=== PATIENT | male | born 1975 | race Caucasian/White ===

== ENCOUNTER 2020-11-16 12:28 | Outpatient (CLI) | payer OTHER, SELFPAY ==
--- NOTE | ~2020-11-16 | MR_ITS ---
EXAMINATION: MR lumbar spine wo con EXAM DATE: 11/16/2020 13:31 INDICATION: Lumbago TECHNIQUE: Multi-sequential, multiplanar MR images of the lumbar spine were obtained without contrast . Sagittal T1, T2, T2 fat saturation images. Axial T2 weighted images. There is no prior study for comparison. FINDINGS: There is mild to moderate disc disease at L5-S1 with 2 mm retrolisthesis. There is mild dis c disease at C4-5. The conus medullaris terminates at the L1/2 level and has normal signal intensity and morphology. There are no suspicious marrow signal abnormalities. Paraspinal soft tissue is unrem arkable. Level by level evaluation: T12-L1: Disc does not extend beyond the endplate margin. Facet arthropathy: None. Neural foraminal stenosis: No stenosis. Central canal stenosis: No stenosis. L1-L2: Disc does not extend beyond the endplate margin. Facet arthropathy: None. Neural foraminal stenosis: No stenosis. Central canal stenosis: No stenosis. L2-L3: Disc does not extend beyond the endplate margin. Facet arthropathy: None. Neural foraminal stenosis: No stenosis. Central canal stenosis: No stenosis. L3-L4: Disc does not extend beyond the endplate margin. Facet arthropathy: None. Neural foraminal stenosis: No stenosis. Central canal stenosis: No stenosis. L4-L5: There is a mild diffuse disc bulge with central annular fissure. Facet arthropathy: Mild. Neural foraminal stenosis: Mild to moderate left, mild right. Central canal stenosis: Mild. L5-S1: There is a mild to moderate diffuse disc bulge. Facet arthropathy: Mild to moderate. Neural foraminal stenosis: Moderate left, mild to moderate right. Central canal stenosis: Mild to moderate. IMPRESSION: 1. Moderate left neural foraminal stenosis at L5-S1. 2. Otherwise mild to moderate lower lumbar spondylosis. Reviewed, dictated and finalized at location G. EAR SECURITY OFFICER
== END 2020-11-16 12:29 | disposition home or self-care (01) ==
PROVIDERS: PCP Internal Medicine
DX: M47.817 Spondylosis without myelopathy or radiculopathy, lumbosacral region (principal); M48.07 Spinal stenosis, lumbosacral region
CPT/HCPCS: 72148

== ENCOUNTER → 2021-12-20 00:39 | Outpatient (CLI) | payer OTHER, SELFPAY ==
[2021-12-20 11:31] LABS: SARS-CoV-2 RNA PCR Negative
== END ==
PROVIDERS: PCP Internal Medicine; Visit Provider Internal Medicine Gastroenterology
DX: Z01.812 Encounter for preprocedural laboratory examination (principal); Z20.822 Contact with and (suspected) exposure to COVID-19
CPT/HCPCS: C9803; U0003; U0005

== ENCOUNTER 2021-12-24 01:27 | Day surgery (SDC) | payer OTHER, SELFPAY ==
[2021-12-24 08:33] VITALS: BP 119/73; PULSE 117; RESP 20; TEMP 36.8; O2SAT 96
[2021-12-24] MEDS: LACTATED RINGERS 1,000 ML 150 ML IV CONT (08:40)
--- NOTE | 2021-12-24 09:14 | WPDANESEPPF ---
Anes - Initial Pre Proc Eval Procedure: Operation Date: 12/24/21 10:15 Proposed Procedures p Colonoscopy - Dar Montero MD Date/Time: 12/24/21 09:14 Surgeon: Dar Montero MD Pre Op Diagnosis: melena Patient Data Age: 46 Gender: M Height: 1.7 m Weight: 83.5 kg Last Vital Signs Temp 36.8 C 12/24/21 08:33 Pulse 117 H 12/24/21 08:33 Resp 20 12/24/21 08:33 BP 119/73 12/24/21 08:33 Pulse Ox 96 12/24/21 08:33 Allergies Allergy/AdvReac Type Severity Reaction Status Date / Time tramadol AdvReac Mild Rash Verified 12/24/21 08:32 Home Medications Medication Instructions Recorded Confirmed Type albuterol sulfate 1.25 mg INHALATION QID PRN ml 10/24/20 12/11/21 History cyclobenzaprine 10 mg tablet 10 mg PO TID tablet 10/24/20 12/11/21 History fluocinonide 0.05 % topical cream See Rx Instructions .ROUTE .COMPLEX 10/24/20 12/11/21 History lidocaine HCl 3 % topical cream 1 applic TOPICAL DAILY g 10/24/20 12/11/21 History pregabalin 300 mg capsule 300 mg PO BID cap 10/24/20 12/11/21 History sertraline 100 mg tablet 200 mg PO BID tablet 10/24/20 12/11/21 History quetiapine 200 mg tablet 200 mg PO BID 30 Days #60 tablet 01/13/21 12/11/21 Rx atorvastatin 20 mg tablet 20 mg PO DAILY #90 tablet 10/20/21 12/11/21 Rx meloxicam 7.5 mg tablet 7.5 mg PO BID #60 tablet 11/26/21 12/11/21 Rx pantoprazole 40 mg tablet,delayed 40 mg PO QAM #30 tablet 11/26/21 12/11/21 Rx release fluticasone propion-salmeterol 1 ea INHALATION BID 12/11/21 12/11/21 History [Wixela Inhub] albuterol sulfate 90 mcg/actuation 2 inh INHALATION Q6-8H PRN #8.5 g 12/22/21 Rx aerosol inhaler Patient hx anesthesia problems: none Family hx anesthesia problems: none Results Review: All pre-operative results and documents have been reviewed as part of the pre-operative evaluation. PMFSH Family History Family History Other Anxiety Arthritis COPD (chronic obstructive pulmonary disease) Chronic pain Depression Social History Social History Smoking packs per day: 2 Smoking cigarettes per day: 40.0 Years smoked: 30 Smoking pack-years: 60.00 Smoking status: Current every day smoker Tobacco type: cigarettes Second hand tobacco smoke exposure: Yes Alcohol intake: never Substance use: never Substance use type: marijuana Living arrangements: with family Spiritual care concerns: No Anes - Eval Final PreProcedure Day of Procedure 12/24/21 09:14 Patient weight: overweight Heart: regular rate and rhythm Lungs: clear to auscultation Airway: Mallampati scale class II Neurological: alert and oriented Last oral intake: >/= 8 hours ASA classification: III Emergent: no Anesthetic plan: proceed Anesthesia type and monitoring: general GIVS and standard monitoring Results Review: All pre-operative results and documents have been reviewed as part of the pre-operative evaluation. Informed Consent: The patient's anesthetic plan and its attendant risks and benefits were discussed with the patient/family/POA. Questions were solicited and answers provided to the satisfaction of the patient/family/POA.
--- NOTE | 2021-12-24 10:16 | PM.HPGS ---
History of Present Illness History of Present Illness Consent: Risks, benefits, and alternatives have been discussed and questions answered. Patient agrees to proceed with procedure. Chief complaint: melena Narrative: Abdulkadir Adrian is a 46 year old male with intermittent hematochezia, never had colonoscopy Review of Systems Constitutional: Constitutional: Denies headache(s) and Denies weakness Eyes: Eyes: Denies blurry vision ENT: Reports Normal hearing present, Denies headache(s) and Denies neck pain Cardiovascular: Cardiovascular: Denies chest pain and Denies dyspnea Respiratory: Respiratory: Denies dyspnea Gastrointestinal: Gastrointestinal: Reports no additional gastrointestinal complaints Genitourinary: Genitourinary: Denies dysuria Musculoskeletal: Musculoskeletal: Denies neck pain Integumentary/Breasts: Skin/Breast: Denies dry skin Neurologic: Reports Normal hearing present, Denies headache(s) and Denies weakness Psychiatric: Psychiatric: Denies anxiety Endocrine: Endocrine: Denies change in body appearance Hematologic/Lymphatic: Hematologic/Lymphatic: Denies easy bleeding Allergic/Immunologic: Allergic/Immunologic: Denies urticaria PMFSH Past Medical History Medical History (Updated 12/24/21 @ 10:17 by Dar Montero MD) Hematochezia Family History Family History Other Anxiety Arthritis COPD (chronic obstructive pulmonary disease) Chronic pain Depression Social History Social History Smoking packs per day: 2 Smoking cigarettes per day: 40.0 Years smoked: 30 Smoking pack-years: 60.00 Smoking status: Current every day smoker Tobacco type: cigarettes Second hand tobacco smoke exposure: Yes Alcohol intake: never Substance use: never Substance use type: marijuana Living arrangements: with family Spiritual care concerns: No Meds Home Medications and Allergies Home Medications Medication Instructions Recorded Confirmed Type albuterol sulfate 1.25 mg INHALATION QID PRN ml 10/24/20 12/11/21 History cyclobenzaprine 10 mg tablet 10 mg PO TID tablet 10/24/20 12/11/21 History fluocinonide 0.05 % topical cream See Rx Instructions .ROUTE .COMPLEX 10/24/20 12/11/21 History lidocaine HCl 3 % topical cream 1 applic TOPICAL DAILY g 10/24/20 12/11/21 History pregabalin 300 mg capsule 300 mg PO BID cap 10/24/20 12/11/21 History sertraline 100 mg tablet 200 mg PO BID tablet 10/24/20 12/11/21 History quetiapine 200 mg tablet 200 mg PO BID 30 Days #60 tablet 01/13/21 12/11/21 Rx atorvastatin 20 mg tablet 20 mg PO DAILY #90 tablet 10/20/21 12/11/21 Rx meloxicam 7.5 mg tablet 7.5 mg PO BID #60 tablet 11/26/21 12/11/21 Rx pantoprazole 40 mg tablet,delayed 40 mg PO QAM #30 tablet 11/26/21 12/11/21 Rx release fluticasone propion-salmeterol 1 ea INHALATION BID 12/11/21 12/11/21 History [Wixela Inhub] albuterol sulfate 90 mcg/actuation 2 inh INHALATION Q6-8H PRN #8.5 g 12/22/21 Rx aerosol inhaler Allergies Allergy/AdvReac Type Severity Reaction Status Date / Time tramadol AdvReac Mild Rash Verified 12/24/21 08:32 Vital Signs Vital Signs - 24 hr 12/24/21 08:33 Temperature 98.2 F Pulse Rate 117 H Respiratory Rate 20 Blood Pressure 119/73 Pulse Oximetry 96 Exam Const: General: comfortable and no acute distress HENMT: General nose exam: Normal nares present Eyes: General: appearance normal, both eyes and all related structures Neck: Neck: no JVD Resp: Auscultation: clear to auscultation bilaterally Cardio: Rate: regular rate Rhythm: regular rhythm GI: Inspection: non-distended GI Palp: Yes Soft to palpation Skin: General skin exam: normal color Neuro: General: gait normal Speech: normal speech Extrem: General: normal to inspection Psych: Mental Status: mental status grossly normal Assessment and Plan
[2021-12-24 10:48] VITALS: BP 119/70; PULSE 95; RESP 23; O2SAT 93
[2021-12-24 10:58] VITALS: BP 119/78; PULSE 90; RESP 26; O2SAT 93
[2021-12-24 11:08] VITALS: BP 125/85; PULSE 85; RESP 25; O2SAT 93
== END 2021-12-24 11:19 | disposition home or self-care (01) ==
PROVIDERS: PCP Internal Medicine; Visit Provider Internal Medicine Gastroenterology
PROC: 0DJD8ZZ Inspection of Lower Intestinal Tract, Via Natural or Artificial Opening Endoscopic (ICD-10-PCS; CPT 45378; principal; 2021-12-24 10:15)
DX: Z12.11 Encounter for screening for malignant neoplasm of colon (principal); K92.1 Melena; D12.2 Benign neoplasm of ascending colon; K63.5 Polyp of colon; K64.8 Other hemorrhoids; F17.210 Nicotine dependence, cigarettes, uncomplicated; F12.90 Cannabis use, unspecified, uncomplicated; Z79.51 Long term (current) use of inhaled steroids
CPT/HCPCS: 45385; 88305; J2704; J7120

== ENCOUNTER 2022-03-10 15:16 | Outpatient (CLI) | payer OTHER, SELFPAY ==
[2022-03-10 15:29] LABS: Basophils Absolute Auto 0.1 K/mm3 (0.0-0.1); Basophils Percent Auto 0.6 % (0.2-1.2); Eosinophils Absolute Auto 0.3 K/mm3 (0-0.3); Eosinophils Percent Auto 1.9 % (0-4.4); Hematocrit 47.5 % (42.0-52.0); Hemoglobin 16.1 g/dL (14.0-18.0); Immature Granulocyte Absolute 0.07 K/mm3 (0.00-0.031); Immature Granulocyte Percent A 0.4 % (0-0.5); Lymphocytes Absolute Auto 2.32 K/mm3 (0.9-3.2); Mean Corpuscular HGB Conc 33.9 g/dl (32-36); Mean Corpuscular Hemoglobin 31.9 pg (26-34); Mean Corpuscular Volume 94.1 fl (80-100); Mean Platelet Volume 10.7 fl (7.4-10.4); Monocytes Absolute Auto 1.2 K/mm3 (0.1-0.6); Monocytes Percent Auto 7.3 % (2.6-8.5); Neutrophils Absolute Auto 12.6 K/mm3 (1.3-6.7); Neutrophils Percent Auto 75.8 % (45.5-73.1); Platelet Count Result 270 k/mm3 (150-375); Red Blood Count 5.05 M/mm3 (4.6-6.20); Red Cell Distribution Width 14.4 % (11.5-14.5); White Blood Count 16.6 K/mm3 (4.5-10.0)
[2022-03-10 15:40] LABS: Anion Gap 7 mmol/L (8-16); Blood Urea Nitrogen 11 mg/dL (9-20); Calcium 8.6 mg/dL (8.4-10.2); Carbon Dioxide 27 mmol/L (22-30); Chloride 106 mmol/L (98-107); Estimated Glomerular Filt Rate > 60; Glucose 100 mg/dL (65-110); Potassium 3.9 mmol/L (3.4-5.0); Sodium 140 mmol/L (137-145)
== END 2022-03-10 15:17 | disposition home or self-care (01) ==
LOC: ANHLAB 15:17
PROVIDERS: PCP Internal Medicine; Visit Provider Internal Medicine Pulmonary Disease
DX: J44.9 Chronic obstructive pulmonary disease, unspecified (principal)
CPT/HCPCS: 36415; 80048; 85025

== ENCOUNTER 2022-03-25 08:19 | Outpatient (CLI) | payer OTHER, SELFPAY ==
--- NOTE | ~2022-03-25 | XR_ITS ---
EXAMINATION: XR chest 2V DATE: 03/25/2022 08:34 INDICATION: Shortness of breath, COPD TECHNIQUE: PA and lateral views of the chest are obtained. COMPARISON: None available FINDINGS: The lungs are free of acute opacities. There is no pleural effusion or pneumothorax. The ca rdiomediastinal silhouette is normal. There is mild thoracic spondylosis. There is a healed right six th rib fracture. IMPRESSION: 1. No acute cardiopulmonary abnormality. Reviewed, dictated and finalized at location A.
== END 2022-03-25 08:20 | disposition home or self-care (01) ==
LOC: ANHIMG 08:21
PROVIDERS: PCP Internal Medicine; Visit Provider Internal Medicine Pulmonary Disease
DX: M47.814 Spondylosis without myelopathy or radiculopathy, thoracic region (principal); J44.9 Chronic obstructive pulmonary disease, unspecified
CPT/HCPCS: 71046

== ENCOUNTER 2022-04-03 14:11 | Outpatient (CLI) | payer OTHER, SELFPAY ==
--- NOTE | 2022-04-03 15:40 | WPDSIXMINUTE ---
Six Minute Walk Procedure Procedure Performed Pulmonary Stress Test (6 min walk) Six Minute Walk Six Minute Walk: This is a 6 minute walk test. The test was performed and interpreted in accordance with the 2014 ERS/ATS task force guidelines. Findings: The patient's resting room air oxygen saturation measured by pulse oximetry was 93% and heart rate was 107 bpm. Patient ambulated for 433 meters and oxygen saturation remained 91 to 93%. Heart rate at the end of the study was 103 bpm. The patient did not qualify for supplemental oxygen at rest or with ambulation. There are no prior studies for comparison.
--- NOTE | 2022-04-03 15:42 | WPDPFTINT ---
PFT Procedure Performed PFT Procedure Performed Spirometry with Pre/Post Bronchodilator Plethysmography (Lung Vol) Diffusing Cap (DLCO) Flow Vol Loop PFT Interpretation This is a pulmonary function test with pre and post-bronchodilator spirometry, plethysmography and diffusing capacity. The test was performed and results interpreted in accordance with the 2019 and 2005 ATS/ERS Task Force guidelines respectively using the Global Lung Function Initiative-2012 reference equations. Patient demonstrated good effort and cooperation. Reproducibility criteria were met. The quality of the pre bronchodilator spirometry maneuver was Grade C and post bronchodilator spirometry maneuver was Grade B. Of note, unable to get acceptable and reproducible plethysmography despite 3 attempts and good coaching. Findings: Spirometry: The contour the inspiratory and expiratory flow tracing are normal. The pre bronchodilator FVC is 3.08 L, 67% predicted. The pre bronchodilator FEV1 is 2.54 L, 69% predicted. The pre bronchodilator FEV1: FVC ratio was 82%. The post bronchodilator FVC is 3.71 L, representing a 21% increase. The post bronchodilator FEV1 is 2.92 L, representing a 15% increase. The post bronchodilator FEV1: FVC ratio is 78%. Plethysmography: The total lung capacity is 6.10 L, 96% predicted. The functional residual capacity is 1.03 L, 33% predicted. The residual volume is 0.87 L, 49% predicted. Diffusion capacity: The diffusing capacity unadjusted for hemoglobin and carboxyhemoglobin is 17.8, 58% predicted. The diffusing capacity adjusted for alveolar volume is 3.85, 79% predicted. Impression: The spirometry is variable and the plethysmography data was not reproducible. Using the best data, the spirometry is normal without evidence of an obstructive abnormality. The total lung capacity is normal with a decreased functional residual capacity and residual volume. The FVC and FEV1 are moderately decreased without an obstructive or restrictive abnormality. This is an abnormal but nonspecific finding. There is significant improvement after inhaling a single dose of albuterol. The diffusing capacity unadjusted for hemoglobin and carboxyhemoglobin is moderately decreased and normalizes when adjusted for alveolar volume. There are no prior studies for comparison
== END 2022-04-03 14:12 | disposition home or self-care (01) ==
LOC: ANHPFT 14:13
PROVIDERS: PCP Internal Medicine; Visit Provider Internal Medicine Pulmonary Disease
DX: J44.9 Chronic obstructive pulmonary disease, unspecified (principal); Z87.891 Personal history of nicotine dependence
CPT/HCPCS: 94060; 94618; 94726; 94729

== ENCOUNTER 2022-05-30 08:38 | Outpatient (CLI) | payer OTHER, SELFPAY ==
[2022-05-30 09:14] LABS: Alanine Aminotransferase 12 U/L (6-50); Albumin Level 4.4 g/dL (3.5-5.1); Alkaline Phosphatase 94 U/L (38-126); Anion Gap 9 mmol/L (8-16); Aspartate Amino Transferase 19 U/L (17-59); Bilirubin,Total 0.4 mg/dL (0.2-1.3); Blood Urea Nitrogen 14 mg/dL (9-20); Calcium 8.8 mg/dL (8.4-10.2); Carbon Dioxide 27 mmol/L (22-30); Chloride 103 mmol/L (98-107); Cholesterol 180 mg/dL (0-200); Estimated Glomerular Filt Rate > 60; Glucose 127 mg/dL (65-110); HDL Direct 31 mg/dL; Potassium 3.8 mmol/L (3.4-5.0); Sodium 139 mmol/L (137-145); Triglycerides 305 mg/dL (<150)
[2022-05-30 09:25] LABS: LDL Cholesterol Direct 96 mg/dL
[2022-05-30 09:43] LABS: Thyroid Stimulating Hormone 0.918 uIU/mL (0.465-4.680)
== END 2022-05-30 08:39 | disposition home or self-care (01) ==
PROVIDERS: PCP Internal Medicine; Visit Provider Internal Medicine
DX: E78.2 Mixed hyperlipidemia (principal); F32.9 Major depressive disorder, single episode, unspecified
CPT/HCPCS: 36415; 80053; 80061; 84443

== ENCOUNTER 2022-06-15 08:49 | Outpatient (CLI) | payer OTHER, SELFPAY ==
[2022-06-15 09:41] LABS: LDL Cholesterol Direct 79 mg/dL
[2022-06-15 10:00] LABS: Alanine Aminotransferase 13 U/L (6-50); Albumin Level 3.9 g/dL (3.5-5.1); Alkaline Phosphatase 125 U/L (38-126); Anion Gap 11 mmol/L (8-16); Aspartate Amino Transferase 17 U/L (17-59); Bilirubin,Total 0.2 mg/dL (0.2-1.3); Blood Urea Nitrogen 16 mg/dL (9-20); Carbon Dioxide 25 mmol/L (22-30); Chloride 107 mmol/L (98-107); Cholesterol 167 mg/dL (0-200); Estimated Glomerular Filt Rate > 60; Glucose 144 mg/dL (65-110); HDL Direct 24 mg/dL; Potassium 3.6 mmol/L (3.4-5.0); Sodium 143 mmol/L (137-145)
[2022-06-15 10:03] LABS: Triglycerides 662 mg/dL (<150)
== END 2022-06-15 08:50 | disposition home or self-care (01) ==
PROVIDERS: PCP Internal Medicine; Visit Provider Internal Medicine
DX: E78.2 Mixed hyperlipidemia (principal); Z79.899 Other long term (current) drug therapy
CPT/HCPCS: 36415; 80053; 80061

== ENCOUNTER 2022-06-17 08:04 | Outpatient (CLI) | payer OTHER, SELFPAY ==
--- NOTE | 2022-07-23 08:24 | WPDSLEEPSTUD ---
Sleep Study Date of Study: 06/17/22 Ordering Provider: Bunny Smith APRN Interpreting Physician: Erin Wolfe MD Sleep Study Type: Polysomnogram Height: 1.73 m Weight: 86.183 kg Body Mass Index: 28.8 Neck Circumference (inches): 16 Zachary: 11 Reason for Sleep Study excessive daytime sleep sleepiness, fatigue, PTSD Sleep History Abdulkadir Adrian is a 47 year old man with complaints of migraine headaches, PTSD with nightmares, stress and anger. He becomes extremely tired during the day. He hurts all over. He feels deeply depressed. He says he has mood swings and does not like to be around people. He describes having panic attacks. These often happen at night. These are severe and have been going on several years. He has difficulty falling asleep, staying asleep and waking up in the morning. He frequently awakens from sleep feeling short of breath and awakens at night with heartburn, belching or coughing. He constantly snores very loudly. He frequently has trouble sleeping with a cold. He occasionally wakes up gasping for breath at night. He frequently has breathing problems at night observed by others. He occasionally sweats excessively at night. He frequently notices his heart pounding or beating irregularly at night.He occasionally falls asleep during the day, rarely falls asleep involuntarily, never falls asleep while driving. He frequently has loss of muscle tone with strong emotion. He rarely has daytime difficulties due to excessive sleepiness. He does not feel paralyzed on waking or falling asleep. He occasionally has vivid dreamlike scenes upon awakening or falling asleep. He occasionally feels afraid to go to sleep. He frequently has nightmares. He occasionally remembers his dreams. He constantly has racing thoughts. He constantly has feelings of sadness, depression and anxiety. He constantly has muscular tension. He occasionally notices parts of his body jerking. He occasionally kicks at night. He occasionally has crawling and aching feelings in his legs. He occasionally has leg pain at night and morning jaw pain. He rarely grinds his teeth at night. He constantly is bothered by pain during the day. He occasionally is awakened by pain at night. He frequently wakes up feeling stiff in the morning. He constantly wakes up with sore achy muscles and pain in the neck and spine. He has dizziness, fatigue, memory problems, concentration difficulties and he takes antacids regularly. He has nightmares. His normal bedtime is somewhere between 9 p.m. to 1:00 a.m.. It takes him a variable amount of time to fall asleep. Sometimes he is able to fall asleep more quickly, and other nights, he struggles. He estimates waking 8 times or more night. He may stay awake between 3 minutes or 3 hours. 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 He may go have a snack. He estimates getting 4-5 hours of sleep on a good night. He does not take naps. A short nap is not refreshing. He is drowsy on waking for 2 hours or longer. Habits: Tobacco smokes daily. Caffeine 120 oz a day. No alcohol. He uses medical marijuana. [facility] Past Medical History Medical History Hematochezia Family History Family History Other Anxiety Arthritis COPD (chronic obstructive pulmonary disease) Chronic pain Depression Social History Social History Smoking packs per day: 2 Smoking cigarettes per day: 40.0 Years smoked: 30 Smoking pack-years: 60.00 Smoking status: Current every day smoker Tobacco type: cigarettes Second hand tobacco smoke exposure: Yes Alcohol intake: never Substance use: never Substance use type: marijuana Spiritual care concerns: No Medications Home Medications Medication Instruc
[2022-07-23 09:27] VITALS: BMI 28.8
== END 2022-06-18 06:58 | disposition home or self-care (01) ==
PROVIDERS: PCP Internal Medicine; Visit Provider Nurse Practitioner Family
DX: G47.9 Sleep disorder, unspecified (principal); G47.34 Idiopathic sleep related nonobstructive alveolar hypoventilation; G47.61 Periodic limb movement disorder
CPT/HCPCS: 95810

== ENCOUNTER 2022-07-27 10:14 | Outpatient (CLI) | payer OTHER, SELFPAY ==
[2022-07-27 10:44] LABS: Basophils Absolute Auto 0.1 K/mm3 (0.0-0.1); Basophils Percent Auto 0.6 % (0.2-1.2); Eosinophils Absolute Auto 0.2 K/mm3 (0-0.3); Eosinophils Percent Auto 1.1 % (0-4.4); Hematocrit 48.4 % (42.0-52.0); Hemoglobin 16.7 g/dL (14.0-18.0); Immature Granulocyte Absolute 0.07 K/mm3 (0.00-0.031); Immature Granulocyte Percent A 0.5 % (0-0.5); Lymphocytes Percent Auto 13.6 % (18.3-44.2); Mean Corpuscular HGB Conc 34.5 g/dl (32-36); Mean Corpuscular Hemoglobin 31.8 pg (26-34); Mean Corpuscular Volume 92.2 fl (80-100); Mean Platelet Volume 10.3 fl (7.4-10.4); Monocytes Absolute Auto 0.9 K/mm3 (0.1-0.6); Monocytes Percent Auto 6.9 % (2.6-8.5); Neutrophils Absolute Auto 10.3 K/mm3 (1.3-6.7); Neutrophils Percent Auto 77.3 % (45.5-73.1); Platelet Count Result 295 k/mm3 (150-375); Red Blood Count 5.25 M/mm3 (4.6-6.20); Red Cell Distribution Width 15.1 % (11.5-14.5); White Blood Count 13.3 K/mm3 (4.5-10.0)
[2022-07-27 11:33] LABS: Iron 88 ug/dL (49-181)
[2022-07-27 11:43] LABS: Percent Iron Saturation 31 % (20-50)
== END 2022-07-27 10:15 | disposition home or self-care (01) ==
LOC: ANHLAB 10:15
PROVIDERS: PCP Internal Medicine; Visit Provider Internal Medicine Pulmonary Disease
DX: J44.9 Chronic obstructive pulmonary disease, unspecified (principal); G89.29 Other chronic pain
CPT/HCPCS: 36415; 82728; 83540; 83550; 85025

== ENCOUNTER 2022-10-19 10:41 | Outpatient (CLI) | payer OTHER, SELFPAY ==
--- NOTE | ~2022-10-19 | XR_ITS ---
EXAMINATION: XR chest 2V 10/19/2022 11:02 INDICATION: COPD. Cough. Shortness of breath. PROCEDURE: 2 view chest COMPARISON: 03/25/2022 FINDINGS: The lungs are clear. The cardiomediastinal silhouette is within normal limits. There are no pleural effusions. There is no pneumothorax suspected. IMPRESSION: 1: NO ACUTE CARDIOPULMONARY DISEASE. Reviewed, dictated and finalized at location A. L MACHINE TENDER
== END 2022-10-19 10:42 | disposition home or self-care (01) ==
PROVIDERS: PCP Internal Medicine; Visit Provider Internal Medicine Pulmonary Disease
DX: J44.9 Chronic obstructive pulmonary disease, unspecified (principal)
CPT/HCPCS: 71046

== ENCOUNTER 2022-11-03 13:44 | Outpatient (CLI) | payer OTHER, SELFPAY ==
--- NOTE | ~2022-11-03 | CT_ITS ---
EXAMINATION: CT diagnostic chest wo con DATE: 11/03/2022 15:04 INDICATION: SOB TECHNIQUE: Computed tomography (CT) of the chest was performed with 100 mL Omnipaque-350 intravenous contrast. Automated exposure control and iterative reconstruction technique were employed. The dose-l ength product was 110.47 mGy-cm. COMPARISON: X-ray chest 10/19/2022. FINDINGS: CHEST: Thoracic aorta: No significant dilation or calcification. Lung parenchyma and airways: Calcified right upper lung granuloma. Peripheral blebs in the upper lung s. Somewhat patchy areas of diffuse groundglass opacity, suggesting early mosaic attenuation. Thoracic inlet, axillae and chest wall: No thyroid or soft tissue mass. No axillary lymphadenopathy. Mediastinum: No mass or lymphadenopathy. Calcified right hilar lymph nodes Heart and pericardium: Normal heart size. No pericardial effusion. Coronary artery calcifications: Absent. Pleura: No effusion or mass. Upper abdomen: No significant finding. Thoracic bones: No acute osseous finding in the chest. IMPRESSION: Peripheral bilateral upper lung paraseptal emphysematous change. Suggestion of early mosaic attenuati on as can be seen with asthma, bronchiolitis obliterans, hypersensitivity pneumonitis, and chronic pu lmonary embolism. Reviewed, dictated and finalized at location K. Y STARCH MOLD PRINTER IMPRESSION: Peripheral bilateral upper lung paraseptal emphysematous change. Suggestion of early mosaic attenuation as can be seen with asthma, bronchiolitis obliterans, hypersensitivity pneumonitis, and chronic pulmonary embolism.
== END 2022-11-03 13:45 | disposition home or self-care (01) ==
PROVIDERS: PCP Internal Medicine; Visit Provider Internal Medicine Pulmonary Disease
DX: J44.9 Chronic obstructive pulmonary disease, unspecified (principal); R91.8 Other nonspecific abnormal finding of lung field
CPT/HCPCS: 71250

== ENCOUNTER 2023-02-11 13:51 | Outpatient (CLI) | payer OTHER, SELFPAY ==
[2023-02-11 15:29] LABS: Alanine Aminotransferase 26 U/L (6-50); Albumin Level 4.5 g/dL (3.5-5.1); Alkaline Phosphatase 95 U/L (38-126); Anion Gap 8 mmol/L (8-16); Aspartate Amino Transferase 26 U/L (17-59); Bilirubin,Total 0.6 mg/dL (0.2-1.3); Blood Urea Nitrogen 12 mg/dL (9-20); Calcium 9.1 mg/dL (8.4-10.2); Carbon Dioxide 28 mmol/L (22-30); Chloride 103 mmol/L (98-107); Cholesterol 152 mg/dL (0-200); Estimated Glomerular Filt Rate > 60; Glucose 91 mg/dL (65-110); HDL Direct 27 mg/dL; Potassium 3.9 mmol/L (3.4-5.0); Sodium 139 mmol/L (137-145); Triglycerides 264 mg/dL (<150)
[2023-02-11 15:40] LABS: LDL Cholesterol Direct 86 mg/dL
== END 2023-02-11 13:52 | disposition home or self-care (01) ==
PROVIDERS: PCP Family Medicine; Visit Provider Nurse Practitioner
DX: E78.5 Hyperlipidemia, unspecified (principal); E78.2 Mixed hyperlipidemia; E78.1 Pure hyperglyceridemia
CPT/HCPCS: 36415; 80053; 80061

== ENCOUNTER 2023-06-17 14:38 | Outpatient (CLI) | payer OTHER, SELFPAY ==
[2023-06-17 15:45] LABS: Basophils Absolute Auto 0.1 K/mm3 (0.0-0.1); Basophils Percent Auto 0.5 % (0.2-1.2); Eosinophils Absolute Auto 0.3 K/mm3 (0-0.3); Eosinophils Percent Auto 2.3 % (0-4.4); Hemoglobin 16.2 g/dL (14.0-18.0); Immature Granulocyte Absolute 0.08 K/mm3 (0.00-0.031); Immature Granulocyte Percent A 0.6 % (0-0.5); Lymphocytes Absolute Auto 1.81 K/mm3 (0.9-3.2); Lymphocytes Percent Auto 13.8 % (18.3-44.2); Mean Corpuscular HGB Conc 33.1 g/dl (32-36); Mean Corpuscular Hemoglobin 32.5 pg (26-34); Mean Corpuscular Volume 98.4 fl (80-100); Mean Platelet Volume 10.8 fl (7.4-10.4); Monocytes Percent Auto 7.7 % (2.6-8.5); Neutrophils Absolute Auto 9.8 K/mm3 (1.3-6.7); Neutrophils Percent Auto 75.1 % (45.5-73.1); Platelet Count Result 296 k/mm3 (150-375); Red Blood Count 4.98 M/mm3 (4.6-6.20); Red Cell Distribution Width 15.4 % (11.5-14.5); White Blood Count 13.1 K/mm3 (4.5-10.0)
[2023-06-17 16:01] LABS: Alanine Aminotransferase 17 U/L (6-50); Albumin Level 4.2 g/dL (3.5-5.1); Alkaline Phosphatase 82 U/L (38-126); Anion Gap 6 mmol/L (8-16); Aspartate Amino Transferase 22 U/L (17-59); Bilirubin,Total 0.4 mg/dL (0.2-1.3); Blood Urea Nitrogen 5 mg/dL (9-20); Calcium 9.1 mg/dL (8.4-10.2); Carbon Dioxide 29 mmol/L (22-30); Chloride 105 mmol/L (98-107); Cholesterol 159 mg/dL (0-200); Estimated Glomerular Filt Rate > 60; Glucose 90 mg/dL (65-110); HDL Direct 27 mg/dL; Potassium 3.8 mmol/L (3.4-5.0); Sodium 140 mmol/L (137-145); Triglycerides 299 mg/dL (<150)
[2023-06-17 16:12] LABS: LDL Cholesterol Direct 86 mg/dL
== END 2023-06-17 14:39 | disposition home or self-care (01) ==
LOC: ANHLAB 14:39
PROVIDERS: PCP Nurse Practitioner Family; Visit Provider Nurse Practitioner Family
DX: J44.9 Chronic obstructive pulmonary disease, unspecified (principal); M51.36 Other intervertebral disc degeneration, lumbar region; F32.9 Major depressive disorder, single episode, unspecified; K21.9 Gastro-esophageal reflux disease without esophagitis; G47.33 Obstructive sleep apnea (adult) (pediatric); Z72.0 Tobacco use
CPT/HCPCS: 36415; 80053; 80061; 85025

== ENCOUNTER 2023-09-10 12:41 | Outpatient (CLI) | payer OTHER, SELFPAY ==
--- NOTE | ~2023-09-10 | MR_ITS ---
EXAMINATION: MR cervical spine wo con DATE: 09/10/2023 13:16 INDICATION: Neck pain. TECHNIQUE: Magnetic resonance imaging (MRI) of the cervical spine was performed without intravenous c ontrast. Sequences included sagittal T2-weighted FSE, sagittal T2-weighted FS FSE, sagittal T1-weight ed FSE, axial MERGE, and axial T2-weighted FSE. COMPARISON: None FINDINGS: There is mild kyphosis of cervical spine. Vertebral body heights are normal. There is mildl y decreased disc height at C5-C6 and C6-C7. The spinal cord signal intensity is normal. The following disc levels are specifically discussed: C2-C3: The disc does not extend beyond the endplate margin. There is no uncovertebral joint osteoarth ritis. There is mild bilateral facet joint osteoarthritis. There is no neural foraminal stenosis. The re is no central canal stenosis. C3-C4: The disc does not extend beyond the endplate margin. There is mild bilateral uncovertebral claudio nt osteoarthritis. There is mild bilateral facet joint osteoarthritis. There is no neural foraminal s tenosis. There is no central canal stenosis. C4-C5: The disc does not extend beyond the endplate margin. There is no uncovertebral joint osteoarth ritis. There is no facet joint osteoarthritis. There is no neural foraminal stenosis. There is no justyna tral canal stenosis. C5-C6: The disc is bulging. There is severe bilateral uncovertebral joint osteoarthritis. There is mi ld bilateral facet joint osteoarthritis. There is moderate right and mild left neural foraminal steno sis. There is mild central canal stenosis. C6-C7: The disc is bulging. There is moderate bilateral uncovertebral joint osteoarthritis. There is no facet joint osteoarthritis. There is mild bilateral neural foraminal stenosis. There is mild centr al canal stenosis. C7-T1: The disc does not extend beyond the endplate margin. There is no uncovertebral joint osteoarth ritis. There is severe bilateral facet joint osteoarthritis. There is mild left neural foraminal sten osis. There is no central canal stenosis. IMPRESSION: 1. Mild cervical spondylosis. Reviewed, dictated and finalized at location E. TER SHIPYARD
== END 2023-09-10 12:42 | disposition home or self-care (01) ==
LOC: ANHIMG 12:45
PROVIDERS: PCP Nurse Practitioner Family; Visit Provider Nurse Practitioner Family
DX: M47.892 Other spondylosis, cervical region (principal)
CPT/HCPCS: 72141

== ENCOUNTER 2023-12-18 08:06 | Outpatient (CLI) | payer OTHER, SELFPAY ==
--- NOTE | ~2023-12-18 | MR_ITS ---
EXAMINATION: MR lumbar spine wo con DATE: 12/18/2023 08:48 INDICATION: Lumbago TECHNIQUE: Magnetic resonance imaging (MRI) of the lumbar spine was performed without intravenous con trast. Sequences included sagittal T2-weighted FSE, sagittal T2-weighted FS FSE, sagittal T1-weighted FSE, and axial T2-weighted FSE. COMPARISON: None FINDINGS: Alignment is normal. Vertebral body heights are normal. Normal marrow signal. This desiccation and m ild disc height loss with annular fissures at both L4-L5 and L5-S1. The conus medullaris terminates a t L1. There is normal signal in the caudal spinal cord. Paravertebral soft tissues are unremarkable. The following disc levels are specifically discussed: T12-L1: The disc does not extend beyond the endplate margin. There is up left facet joint osteoarthri tis. There is no neural foraminal stenosis. There is no central canal stenosis. L1-L2: The disc does not extend beyond the endplate margin. There is mild bilateral facet joint osteo arthritis. There is no neural foraminal stenosis. There is no central canal stenosis. L2-L3: The disc does not extend beyond the endplate margin. There is mild bilateral facet joint osteo arthritis. There is no neural foraminal stenosis. There is no central canal stenosis. L3-L4: The disc does not extend beyond the endplate margin. There is mild bilateral facet joint osteo arthritis. There is mild bilateral neural foraminal stenosis. There is no central canal stenosis. L4-L5: Disc is mildly bulging with superimposed annular fissure and small central disc extrusion with disc material extending couple millimeters cephalad to the level of the inferior endplate of L4. The re is mild bilateral facet joint osteoarthritis. There is mild right and moderate left neural foramin al stenosis. There is minimal central canal stenosis but mild narrowing of the left and right lateral recesses.. L5-S1: Disc is bulging with superimposed annular fissure and small central to left foraminal zone dis c extrusion There is mild right and moderate left facet joint osteoarthritis. There is mild to modera te right and severe left neural foraminal stenosis. There is minimal central canal stenosis with mild narrowing of the left and right lateral recesses. IMPRESSION: 1. Mild lower lumbar spondylosis most notable for severe neural foraminal stenosis on the left at L5- S1. Reviewed, dictated and finalized at location A. IMPRESSION: 1. Mild lower lumbar spondylosis most notable for severe neural foraminal steno sis on the left at L5-S1.
== END 2023-12-18 08:07 | disposition home or self-care (01) ==
LOC: ANHIMG 08:08
PROVIDERS: PCP Family Medicine; Visit Provider Nurse Practitioner Family
DX: M47.896 Other spondylosis, lumbar region (principal)
CPT/HCPCS: 72148

== ENCOUNTER 2023-12-23 15:19 | Outpatient (CLI) | payer OTHER, SELFPAY ==
[2023-12-23 15:59] LABS: Basophils Absolute Auto 0.1 K/mm3 (0.0-0.1); Basophils Percent Auto 0.5 % (0.2-1.2); Eosinophils Absolute Auto 0.3 K/mm3 (0-0.3); Eosinophils Percent Auto 2.1 % (0-4.4); Hemoglobin 16.5 g/dL (14.0-18.0); Immature Granulocyte Absolute 0.05 K/mm3 (0.00-0.031); Immature Granulocyte Percent A 0.4 % (0-0.5); Lymphocytes Absolute Auto 2.52 K/mm3 (0.9-3.2); Mean Corpuscular Hemoglobin 31.5 pg (26-34); Mean Corpuscular Volume 95.6 fl (80-100); Mean Platelet Volume 10.8 fl (7.4-10.4); Monocytes Percent Auto 8.1 % (2.6-8.5); Neutrophils Absolute Auto 8.2 K/mm3 (1.3-6.7); Neutrophils Percent Auto 67.9 % (45.5-73.1); Platelet Count Result 271 k/mm3 (150-375); Red Blood Count 5.23 M/mm3 (4.6-6.20); Red Cell Distribution Width 14.6 % (11.5-14.5)
[2023-12-23 16:34] LABS: Alanine Aminotransferase 14 U/L (6-50); Albumin Level 4.4 g/dL (3.5-5.1); Alkaline Phosphatase 92 U/L (38-126); Anion Gap 7 mmol/L (8-16); Aspartate Amino Transferase 18 U/L (17-59); Bilirubin,Total 0.5 mg/dL (0.2-1.3); Blood Urea Nitrogen 8 mg/dL (9-20); Calcium 9.1 mg/dL (8.4-10.2); Carbon Dioxide 29 mmol/L (22-30); Chloride 103 mmol/L (98-107); Cholesterol 154 mg/dL (0-200); Estimated Glomerular Filt Rate > 60; Glucose 110 mg/dL (65-110); HDL Direct 28 mg/dL; Potassium 3.6 mmol/L (3.4-5.0); Sodium 139 mmol/L (137-145); Triglycerides 261 mg/dL (<150)
[2023-12-23 16:43] LABS: LDL Cholesterol Direct 96 mg/dL
[2023-12-23 17:02] LABS: Prostate Specific Antigen 2.8 ng/mL (< OR = 4.0)
== END 2023-12-23 15:20 | disposition home or self-care (01) ==
LOC: ANHLAB 15:20
PROVIDERS: PCP Family Medicine; Visit Provider Nurse Practitioner Family
DX: Z12.5 Encounter for screening for malignant neoplasm of prostate (principal); F32.9 Major depressive disorder, single episode, unspecified; J44.9 Chronic obstructive pulmonary disease, unspecified; K21.9 Gastro-esophageal reflux disease without esophagitis; M51.36 Other intervertebral disc degeneration, lumbar region; M54.50 Low back pain, unspecified; Z72.0 Tobacco use; Z79.899 Other long term (current) drug therapy
CPT/HCPCS: 36415; 80053; 80061; 84153; 85025; G0103

== ENCOUNTER 2024-04-02 19:23 | Emergency (ER) | payer OTHER, SELFPAY ==
--- NOTE | ~2024-04-02 | XR_ITS ---
EXAMINATION: XR ribs LT 2V w CXR 2V DATE: 04/02/2024 20:00 INDICATION: Left rib pain. Cough. TECHNIQUE: Frontal and lateral views of the chest and 2 views on 3 radiographs of the left ribs were obtained. COMPARISON: Chest 2 views 10/19/2022 FINDINGS: CHEST TWO VIEWS: There is no pneumonia, pleural effusion, or pneumothorax. The heart size is normal. There is an old healed right rib fracture. LEFT RIBS: There is an old healed fracture of left ninth rib. There is an acute fracture of left 10th rib. IMPRESSION: 1. Acute left 10th rib fracture. Reviewed, dictated and finalized at location E.
[2024-04-02 19:30] VITALS: BP 140/90; PULSE 85; RESP 16; TEMP 36.6; O2SAT 98
[2024-04-02] MEDS: KETOROLAC 30 MG/ML VIAL (*BKC) IM (20:29)
[2024-04-02] MEDS: HYDROcodone/acetaminophen (*CRX) 5-325 MG TABLET 1 TAB PO (20:33)
[2024-04-02 20:34] VITALS: BP 129/86; PULSE 77; RESP 20; O2SAT 96
--- NOTE | 2024-04-02 20:35 | PC.NURSE ---
[place] administration flagged due to allergy confliction. made aware, EDP Dr. Mueller states norco administration is okay. Pt educated and choose to continue with medication administration. Pt states allergy just doesn't make me feel right .
--- NOTE | 2024-04-02 20:38 | ED.GENADULT ---
HPI - General Adult General Chief complaint: Back Pain/Injury Stated complaint: L LATERAL RIB/BACK PAIN S/P SNEEZE Time Seen by Provider: 04/02/24 20:11 History of Present Illness HPI narrative: Patient is a 39-year-old gentleman presents emergency department with chief complaint of left-sided rib pain. Patient reports about 5 days ago he had a violent sneeze patient reports that since then he has had pain in the left side of his chest worse with inspiration worse with movement. Related Data Home Medications Medication Instructions Recorded Confirmed cyclobenzaprine 10 mg tablet 10 mg PO TID 10/24/20 02/15/24 pregabalin 300 mg capsule 300 mg PO BID 10/24/20 02/15/24 sertraline 100 mg tablet 200 mg PO BID 10/24/20 02/15/24 lorazepam 0.5 mg tablet 0.5 mg PO BID PRN 04/02/22 02/15/24 prazosin 1 mg capsule 1 mg PO QHS 04/02/22 02/15/24 Allergies Allergy/AdvReac Type Severity Reaction Status Date / Time tramadol AdvReac Mild Rash Verified 02/15/24 10:23 Review of Systems Review of Systems: A 10 system review of systems was completed on the patient and is negative except for what is stated in the HPI. Nursing and ancillary documentation was reviewed. [facility] Past Medical History Medical History Hematochezia Surgical History Surgical History History of removal of cyst left hand Family History Family History Other Anxiety Arthritis COPD (chronic obstructive pulmonary disease) Chronic pain Depression Social History Social History Smoking packs per day: 1.25 Smoking cigarettes per day: 25.0 Years smoked: 33 Smoking pack-years: 41.25 Smoking status: Current every day smoker Tobacco type: cigarettes Second hand tobacco smoke exposure: Yes Alcohol intake: never Substance use: current Substance use type: marijuana Lack of Transportation: No Lack of Food: Sometimes True Current Housing: I Have Housing Concerned About Future Housing: No Difficulty Paying Gas/Electric Bills: YES Difficulty Paying for Meds: YES Currently Unemployed: YES Education: High School Diploma/GED Difficulty w/ Childcare or Family Care: No Living arrangements: with family Gender identity (if verbalized by the patient): Male Sexual Orientation (if Verbalized by the Patient): Straight or Heterosexual Spiritual care concerns: No Exam Narrative: GENERAL: Well-appearing, well-nourished, and in no acute distress. HEAD: Normocephalic, atraumatic. EYES: PERRLA and EOMI. ENT: Nares clear, no rhinorrhea or epistaxis. Mucous membranes moist. NECK: Supple. CHEST: Clear to auscultation. No respiratory distress. Chest wall is tender to palpation in the left side HEART: Regular rate and rhythm. No murmur heard. Normal peripheral pulses. ABDOMEN: Soft, nontender, nondistended, normal active bowel sounds. EXTREMITIES: Normal range of motion. No edema. SKIN: Warm, dry, no rash. NEURO: No focal deficits. Alert and oriented x3. PSYCH: Normal mood and affect. Course Vital Signs Vital signs: Vital Signs Temperature 36.6 C 04/02/24 19:30 Pulse Rate 85 04/02/24 19:30 Respiratory Rate 16 04/02/24 19:30 Blood Pressure 140/90 04/02/24 19:30 Pulse Oximetry 98 04/02/24 19:30 Temperature 36.6 C 04/02/24 19:30 Pulse Rate 77 04/02/24 20:34 Respiratory Rate 20 04/02/24 20:34 Blood Pressure 129/86 04/02/24 20:34 Pulse Oximetry 96 04/02/24 20:34 Medical Decision Making [facility] Narrative Medical decision making narrative: Differential diagnosis includes rib fracture, pneumonia, pneumothorax Rib x-ray showed evidence of a 10th rib fracture no pneumothorax no pneumonia Patient was started on pain control and
== END 2024-04-02 20:45 | disposition home or self-care (01) ==
PROVIDERS: Emergency Provider Emergency Medicine; PCP Family Medicine
DX: S22.32XA Fracture of one rib, left side, initial encounter for closed fracture (principal); F17.210 Nicotine dependence, cigarettes, uncomplicated; X50.9XXA Other and unspecified overexertion or strenuous movements or postures, initial encounter
CPT/HCPCS: 71046; 71100; 96372; 99283; A9270; J1885

== ENCOUNTER 2024-08-19 00:10 | Emergency (ER) | payer OTHER, SELFPAY ==
--- NOTE | ~2024-08-19 | CT_ITS ---
EXAMINATION: CT lumbar spine wo con DATE: 08/19/2024 03:33 INDICATION: Left-sided sciatica. TECHNIQUE: Computed tomography (CT) of the lumbar spine was performed without intravenous contrast. A utomated exposure control and iterative reconstruction technique were employed. The dose-length produ ct was 690.18 mGy-cm. COMPARISON: Lumbar spine MRI 12/18/2023 FINDINGS: There is 8 degrees levocurvature of lumbar spine. Vertebral body heights are normal. There is moderately decreased disc height at L5-S1. The following disc levels are specifically discussed: L1-L2: The disc does not extend beyond the endplate margin. There is mild bilateral facet joint osteo arthritis. There is no neural foraminal stenosis. There is no central canal stenosis. L2-L3: The disc does not extend beyond the endplate margin. There is mild bilateral facet joint osteo arthritis. There is no neural foraminal stenosis. There is no central canal stenosis. L3-L4: There is a right foraminal protrusion. There is mild bilateral facet joint osteoarthritis. The re is mild right neural foraminal stenosis. There is no central canal stenosis. L4-L5: The disc is bulging. There is mild bilateral facet joint osteoarthritis. There is mild bilater al neural foraminal stenosis. There is mild central canal stenosis. L5-S1: The disc is bulging. There is moderate bilateral facet joint osteoarthritis. There is mild rig ht and moderate left neural foraminal stenosis. There is mild central canal stenosis. IMPRESSION: 1. Stable moderate lower lumbar spondylosis. Reviewed, dictated and finalized at location A. CUTTER
[2024-08-19 01:33] VITALS: BP 125/89; PULSE 102; RESP 14; TEMP 36.4; O2SAT 96
[2024-08-19] MEDS: ORPHENADRINE CITRATE 100 MG TABLET.ER PO (03:02)
[2024-08-19] MEDS: dexAMETHasone SOD PHOS INJ 10 MG/ML 1 ML VIAL IM (03:02)
[2024-08-19] MEDS: HYDROmorphone HCL INJ (*CRX) 1 MG/ML SYR IM (03:03)
[2024-08-19] MEDS: KETOROLAC 15 MG/ML VIAL (*BKC) IM (03:03)
[2024-08-19 03:10] VITALS: BP 128/90; PULSE 87; RESP 15; O2SAT 98
--- NOTE | 2024-08-19 03:37 | ED_ITS ---
HPI - General Adult General Chief complaint: Back Pain/Injury Stated complaint: sciatica Time Seen by Provider: 08/19/24 02:42 History of Present Illness HPI narrative: patient from 49-year-old gentleman presents emergency department chief complaint of left sided back pain and pain radiating down his left leg. The patient reports that he has been seen IP management had spinal injections reports that he continued to have pain patient does report that he has a tingling sensation left leg has been there for several weeks now patient states he has had no bowel or bladder incontinence reports that he is seeing pain management and plans to follow-up with them. Related Data Home Medications Medication Instructions Recorded Confirmed cyclobenzaprine 10 mg tablet 10 mg PO TID 10/24/20 07/20/24 pregabalin 300 mg capsule 300 mg PO BID 10/24/20 07/20/24 sertraline 100 mg tablet 200 mg PO BID 10/24/20 07/20/24 lorazepam 0.5 mg tablet 0.5 mg PO BID PRN 04/02/22 07/20/24 prazosin 1 mg capsule 1 mg PO QHS 04/02/22 07/20/24 Allergies Allergy/AdvReac Type Severity Reaction Status Date / Time tramadol AdvReac Mild Rash Verified 07/20/24 07:51 Review of Systems Review of Systems: A 10 system review of systems was completed on the patient and is negative except for what is stated in the HPI. Nursing and ancillary documentation was reviewed. [facility] Past Medical History Medical History Hematochezia Surgical History Surgical History History of removal of cyst left hand Family History Family History Other Anxiety Arthritis COPD (chronic obstructive pulmonary disease) Chronic pain Depression Social History Social History Smoking packs per day: 1.25 Smoking cigarettes per day: 25.0 Years smoked: 33 Smoking pack-years: 41.25 Smoking status: Current every day smoker Tobacco type: cigarettes Second hand tobacco smoke exposure: Yes Alcohol intake: never Substance use: current Substance use type: marijuana Do You Feel Safe in your Home?: Yes Lack of Transportation: No Lack of Food: Sometimes True Current Housing: I Have Housing Concerned About Future Housing: No Difficulty Paying Gas/Electric Bills: YES Difficulty Paying for Meds: YES Currently Unemployed: YES Education: High School Diploma/GED Difficulty w/ Childcare or Family Care: No Living arrangements: with family Occupation/Education: retired Gender identity (if verbalized by the patient): Male Sexual Orientation (if Verbalized by the Patient): Straight or Heterosexual Spiritual care concerns: No Agree to blood products: Yes Exam Narrative: GENERAL: Well-appearing, well-nourished, and in no acute distress. HEAD: Normocephalic, atraumatic. EYES: PERRLA and EOMI. ENT: Nares clear, no rhinorrhea or epistaxis. Mucous membranes moist. NECK: Supple. CHEST: Clear to auscultation. No respiratory distress. HEART: Regular rate and rhythm. No murmur heard. Normal peripheral pulses. ABDOMEN: Soft, nontender, nondistended, normal active bowel sounds. EXTREMITIES: Normal range of motion Tenderness to palpation left SI joint and along the sciatic nerve distribution.. No edema. SKIN: Warm, dry, no rash. NEURO: No focal deficits. Alert and oriented x3. PSYCH: Normal mood and affect. Course Vital Signs Vital signs: Vital Signs Temperature 36.4 C L 08/19/24 01:33 Pulse Rate 102 H 08/19/24 01:33 Respiratory Rate 14 08/19/24 01:33 Blood Pressure 125/89 08/19/24 01:33 Pulse Oximetry 96 08/19/24 01:33 Oxygen Delivery Room Air 08/19/24 01:33 Temperature 36.4 C L 08/19/24 01:33 Pulse Rate 102 H 08/19/24 01:33 Respiratory Rate 14 08/19/24 01:33 Blood Pressure 125/89 08/19/24 01:33 Pulse Oximetry 96 08/19/24 01:33 Oxygen Delivery Room Air 08/19/24 01:33 Medical Decision Making [facility] Narrative Medical decision making narrative: differential diagnosis includes sciatica, chronic lumbar radiculopathy CT scan of lumbar spine showed severe left and moderate right L5-S1 foraminal stenosis. This is not acute Vital Signs Vital Signs: Vital Signs Temperature 36.4 C L 08/19/24 01:33 Pulse Rate 102 H 08/19/24 01:33 Respiratory Rate 14 08/19/24 01:33 Blood Pressure 125/89 08/19/24 01:33 Pulse Oximetry 96 08/19/24 01:33 Oxygen Delivery Room Air 08/19/24 01:33 Temperature 36.4 C L 08/19/24 01:33 Pulse Rate 102 H 08/19/24 01:33 Respiratory Rate 14 08/19/24 01:33 Blood Pressure 125/89 08/19/24 01:33 Pulse Oximetry 96 08/19/24 01:33 Oxygen Delivery Room Air 08/19/24 01:33 Discharge Plan Discharge Clinical Impression: Left sided sciatica Patient Disposition: Home, Self-Care Condition: Stable Instructions: Antibiotic Form, Sciatica (ED) Additional Instructions: please follow-up your pain management provider as soon as possible Prescriptions: New prednisone 20 mg tablet 40 mg PO DAILY 5 Days Qty: 10 0RF No Action atorvastatin 20 mg tablet 20 mg PO DAILY Qty: 90 1RF rabeprazole [AcipHex] 20 mg tablet,delayed release (DR/EC) 20 mg PO DAILY Qty: 90 1RF cyclobenzaprine 10 mg tablet 10 mg PO TID pregabalin 300 mg capsule 300 mg PO BID sertraline 100 mg tablet 200 mg PO BID prazosin 1 mg capsule 1 mg PO QHS lorazepam 0.5 mg tablet 0.5 mg PO BID PRN quetiapine 200 mg tablet 200 mg PO BID 30 Days Qty: 60 2RF albuterol sulfate 90 mcg/actuation HFA aerosol inhaler 2 inh inhalation Q4H PRN (Reason: shortness of breath or wheezing) Qty: 8.5 6RF budesonide-formoterol [Symbicort] 160-4.5 mcg/actuation HFA aerosol inhaler 2 puff inhalation BID Qty: 10.2 6RF Spiriva with HandiHaler 18 mcg capsule, w/inhalation device See Rx Instructions .ROUTE .COMPLEX Qty: 30 6RF Dose Instruction: INHALE THE CONTENTS OF ONE CAPSULE EVERY MORNING Rx Instructions: INHALE THE CONTENTS OF ONE CAPSULE EVERY MORNING meloxicam 7.5 mg tablet See Rx Instructions .ROUTE .COMPLEX Qty: 180 0RF Dose Instruction: TAKE 1 TABLET (7.5 MG) BY MOUTH TWO TIMES DAILY Rx Instructions: TAKE 1 TABLET (7.5 MG) BY MOUTH TWO TIMES DAILY hydrocodone-acetaminophen 5-325 mg tablet 1 tablet PO BID PRN (Reason: pain) Qty: 60 0RF albuterol sulfate 2.5 mg /3 mL (0.083 %) solution for nebulization See Rx Instructions .ROUTE .COMPLEX Qty: 75 5RF Dose Instruction: NEBULIZE THE CONTENTS OF ONE VIAL BY INHALATION ONCE DAILY NEEDED Rx Instructions: NEBULIZE THE CONTENTS OF ONE VIAL BY INHALATION ONCE DAILY NEEDED Follow-up/Referrals: Gita Gomez APRN [Primary Care Provider] - Time of Disposition: 04:58
[2024-08-19 05:00] VITALS: BP 118/84; PULSE 84; RESP 15; O2SAT 97
== END 2024-08-19 05:11 | disposition home or self-care (01) ==
PROVIDERS: Emergency Provider Emergency Medicine; PCP Nurse Practitioner Family
DX: M54.42 Lumbago with sciatica, left side (principal); F17.210 Nicotine dependence, cigarettes, uncomplicated; Z79.899 Other long term (current) drug therapy; M47.816 Spondylosis without myelopathy or radiculopathy, lumbar region
CPT/HCPCS: 72131; 96372; 99284; A9270; J1100; J1171; J1885

== ENCOUNTER 2024-12-05 15:44 | Outpatient (CLI) | payer MEDICAID, SELFPAY | END 2024-12-05 15:45 | disposition home or self-care (01) | PROVIDERS: PCP Nurse Practitioner Family; Visit Provider Nurse Practitioner Family | DX: R07.81 Pleurodynia (principal); R06.02 Shortness of breath; S22.42XD Multiple fractures of ribs, left side, subsequent encounter for fracture with routine healing; X58.XXXD Exposure to other specified factors, subsequent encounter | CPT/HCPCS: 71046; 71110 ==

== ENCOUNTER 2025-03-19 01:42 | Day surgery (SDC) | payer OTHER, SELFPAY ==
[2025-03-05 14:41] VITALS: BMI 32.1
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
--- OUTSIDE RECORDS SUMMARY | 2025-03-19 01:45 | XMS_ITS | Encounter Summary ---
Author Organization [facility] Address [address] [place] [address] Care Team Providers Care Fabrication Specialist Name Role Phone Gita Gomez Primary Care Provider Unavailabl e Reason for Referral * Consultation (Routine) - Closed Specialty Diagnoses / Procedures Referred By Contabundio t Referred To Contact Neurological Surgery Diagnoses Low back pain, unspecified back pain laterality, unspecified chronicity, unspecified whether sciatica present Other intervertebral disc disorders, lumbar region Gita Gomez APRN-CNP [address] [address] Phone: tel: fax: [facility] - Neurosurgery [address] [place] [phone] Phone: tel: fax: Referral ID Status Reason Start Date Expiration Date V isits Requested Visits Authorized [id number] Closed Specialty Services Required 08/18/2024 08/18/2025 1 1 MENTAL METAL ERECTOR Encounter Details Date Type Department Care Team (Latest Contact Info) Description 08/18/2024 Transcribe Orders [facility] - Centralized Scheduling [facility] [place] [id number] Gita Gomez APRN-CNP [address] [phone] Low back pain, unspecified back pain laterality, unspecified chronicity, unspecified whether sciatica present ; Other intervertebral disc disorders, lumbar region Social History Tobacco Use Types Packs/Day Years Used Date Smoking Tobacco: Every Day Cigarettes Smokeless Tobacco: Former Alcohol Use Standard Drinks/Week Comments No 0 (1 standard drink = 0.6 oz pur e alcohol) Sex and Gender Information Value Date Recorded Sex Assigned at Not on file 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 Gender Identity Not on file Sexual Orientation Not on file documented as of this encounter Plan of Treatment Scheduled Referrals Name Type Priority Associated Diagnoses Orde r Schedule AMB REFERRAL TO NEUROSURGERY Outpatient Referral Routine Low back pain, unspecified back pain laterality, unspecified chronicity, unspecified whether sciatica present Other intervertebral disc disorders, lumbar region 1 Occurrences starting 08/18/2024 until 08/18/2025 documented as of this encounter Visit Diagnoses Diagnosis Low back pain, unspecified back pain laterality, unspecified chronicity, unspecified whether sciatica present- Primary Other intervertebral disc disorders, lumbar region documented in this encounter Care Teams Fabrication Specialist Relationship Specialty Start Date End Date Gita Gomez PCP - General 08/18/24 documented as of this encounter
[2025-03-19 09:41] VITALS: BP 120/83; PULSE 100; RESP 18; TEMP 37; O2SAT 95
--- NOTE | 2025-03-19 09:44 | WPDANESEPPF ---
Anes - Initial Pre Proc Eval Procedure: Operation Date: 03/19/25 10:00 Proposed Procedures p Colonoscopy - Dar Montero MD Date/Time: 03/19/25 09:44 Surgeon: Dar Montero MD Pre Op Diagnosis: Personal history of colon polyps, unspecified Patient Data Age: 49 Gender: M Height: 1.7 m Weight: 87.7 kg Last Vital Signs Temp 37.0 C 03/19/25 09:41 Pulse 100 03/19/25 09:41 Resp 18 03/19/25 09:41 BP 120/83 03/19/25 09:41 Pulse Ox 95 03/19/25 09:41 O2 Del Method Room Air 03/19/25 09:41 Allergies Allergy/AdvReac Type Severity Reaction Status Date / Time tramadol AdvReac Mild Rash Verified 03/19/25 09:36 Home Medications ?Medication ?Instructions ?Recorded ?Confirmed ?Type cyclobenzaprine 10 mg tablet 10 mg PO TID 10/24/20 03/19/25 History sertraline 100 mg tablet 200 mg PO BID 10/24/20 03/19/25 History lorazepam 0.5 mg tablet 0.5 mg PO BID PRN anxiety 04/02/22 03/19/25 History prazosin 1 mg capsule 1 mg PO QHS 04/02/22 03/19/25 History tiotropium bromide 18 mcg capsule See Rx Instructions .Route 09/04/24 03/19/25 Rx with inhalation device (Spiriva .COMPLEX #30 grams with HandiHaler) atorvastatin 20 mg tablet See Rx Instructions .Route 09/13/24 03/19/25 Rx .COMPLEX #90 tabs albuterol sulfate 90 mcg/actuation See Rx Instructions .Route 10/09/24 03/05/25 Rx aerosol inhaler .COMPLEX #8.5 grams budesonide-formoterol HFA 160 2 puff inhalation BID #10.2 grams 10/09/24 03/19/25 Rx mcg-4.5 mcg/actuation aerosol inhaler (Symbicort) omeprazole 40 mg capsule,delayed 40 mg PO DAILY #90 caps 10/21/24 03/19/25 Rx release quetiapine 200 mg tablet 200 mg PO DAILY 12/05/24 03/19/25 History albuterol sulfate 2.5 mg/3 mL See Rx Instructions .Route 01/29/25 03/05/25 Rx (0.083 %) solution for nebulization .COMPLEX #75 mL meloxicam 7.5 mg tablet See Rx Instructions .Route 02/27/25 03/19/25 Rx .COMPLEX #180 tabs acetaminophen 325 mg capsule 325 mg PO HS PRN pain 03/05/25 03/05/25 History Patient hx anesthesia problems: none Family hx anesthesia problems: none Results Review: All pre-operative results and documents have been reviewed as part of the pre-operative evaluation. [facility] Past Medical History Medical History Hematochezia Surgical History Surgical History History of removal of cyst left hand Family History Family History Other Anxiety Arthritis COPD (chronic obstructive pulmonary disease) Chronic pain Depression Social History Social History Smoking packs per day: 1.25 Smoking cigarettes per day: 25.0 Years smoked: 33 Smoking pack-years: 41.25 Smoking status: Current every day smoker Tobacco type: cigarettes Second hand tobacco smoke exposure: Yes Alcohol intake: never Substance use: current Substance use type: marijuana Do You Feel Safe in your Home?: Yes Lack of Transportation: No Lack of Food: Sometimes True Current Housing: I Have Housing Concerned About Future Housing: No Difficulty Paying Gas/Electric Bills: YES Difficulty Paying for Meds: YES Currently Unemployed: YES Education: High School Diploma/GED Difficulty w/ Childcare or Family Care: No Living arrangements: with family Occupation/Education: retired Gender identity (if verbalized by the patient): Male Sexual Orientation (if Verbalized by the Patient): Straight or Heterosexual Spiritual care concerns: No Agree to blood products: Yes Anes - Eval Final PreProcedure Day of Procedure 03/19/25 09:44 Patient weight: obese Heart: regular rate and rhythm Lungs: decreased breath sounds Airway: Mallampati scale class III Neurological: alert and oriented Last oral intake: >/= 8 hours ASA classification: III Emergent: no Anesthetic plan: proceed Anesthesia type and monitoring: general GIVS and standard monitoring Results Review: All pre-operative results and documents have been reviewed as part of the pre-operative evaluation. Informed Consent: The patient's anesthetic plan and its attendant risks and benefits were discussed with the patient/family/POA. Questions were solicited and answers provided to the satisfaction of the patient/family/POA.
[2025-03-19] MEDS: LACTATED RINGERS 1,000 ML 150 ML IV CONT (09:47)
--- NOTE | 2025-03-19 10:05 | PM.HPGS ---
History of Present Illness History of Present Illness Consent: Risks, benefits, and alternatives have been discussed and questions answered. Patient agrees to proceed with procedure. Chief complaint: Personal history of colon polyps, unspecified Narrative: Abdulkadir Adrian is a 49 year old male with colon polyp in 2021 Review of Systems Review of Systems: All systems reviewed & are unremarkable except as noted in HPI and below PMFSH Past Medical History Medical History (Updated 03/19/25 @ 10:07 by Dar Montero MD) Adenomatous colon polyp Hematochezia Surgical History Surgical History History of removal of cyst left hand Family History Family History Other Anxiety Arthritis COPD (chronic obstructive pulmonary disease) Chronic pain Depression Social History Social History Smoking packs per day: 1.25 Smoking cigarettes per day: 25.0 Years smoked: 33 Smoking pack-years: 41.25 Smoking status: Current every day smoker Tobacco type: cigarettes Second hand tobacco smoke exposure: Yes Alcohol intake: never Substance use: current Substance use type: marijuana Do You Feel Safe in your Home?: Yes Lack of Transportation: No Lack of Food: Sometimes True Current Housing: I Have Housing Concerned About Future Housing: No Difficulty Paying Gas/Electric Bills: YES Difficulty Paying for Meds: YES Currently Unemployed: YES Education: High School Diploma/GED Difficulty w/ Childcare or Family Care: No Living arrangements: with family Occupation/Education: retired Gender identity (if verbalized by the patient): Male Sexual Orientation (if Verbalized by the Patient): Straight or Heterosexual Spiritual care concerns: No Agree to blood products: Yes Meds Home Medications and Allergies Home Medications ?Medication ?Instructions ?Recorded ?Confirmed ?Type cyclobenzaprine 10 mg tablet 10 mg PO TID 10/24/20 03/19/25 History sertraline 100 mg tablet 200 mg PO BID 10/24/20 03/19/25 History lorazepam 0.5 mg tablet 0.5 mg PO BID PRN anxiety 04/02/22 03/19/25 History prazosin 1 mg capsule 1 mg PO QHS 04/02/22 03/19/25 History tiotropium bromide 18 mcg capsule See Rx Instructions .Route 09/04/24 03/19/25 Rx with inhalation device (Spiriva .COMPLEX #30 grams with HandiHaler) atorvastatin 20 mg tablet See Rx Instructions .Route 09/13/24 03/19/25 Rx .COMPLEX #90 tabs albuterol sulfate 90 mcg/actuation See Rx Instructions .Route 10/09/24 03/05/25 Rx aerosol inhaler .COMPLEX #8.5 grams budesonide-formoterol HFA 160 2 puff inhalation BID #10.2 grams 10/09/24 03/19/25 Rx mcg-4.5 mcg/actuation aerosol inhaler (Symbicort) omeprazole 40 mg capsule,delayed 40 mg PO DAILY #90 caps 10/21/24 03/19/25 Rx release quetiapine 200 mg tablet 200 mg PO DAILY 12/05/24 03/19/25 History albuterol sulfate 2.5 mg/3 mL See Rx Instructions .Route 01/29/25 03/05/25 Rx (0.083 %) solution for nebulization .COMPLEX #75 mL meloxicam 7.5 mg tablet See Rx Instructions .Route 02/27/25 03/19/25 Rx .COMPLEX #180 tabs acetaminophen 325 mg capsule 325 mg PO HS PRN pain 03/05/25 03/05/25 History Allergies Allergy/AdvReac Type Severity Reaction Status Date / Time tramadol AdvReac Mild Rash Verified 03/19/25 09:36 Vital Signs Vital Signs - 24 hr 03/19/25 09:41 Temperature 98.6 F Pulse Rate 100 Respiratory Rate 18 Blood Pressure 120/83 Pulse Oximetry 95 Oxygen Delivery Room Air Exam Const: General: comfortable and no acute distress HENMT: Face/Nose/Sinus: Normal nares present Eyes: General: appearance normal, both eyes and all related structures Neck: Neck: no JVD Resp: Auscultation: clear to auscultation bilaterally Cardio: Rate: regular rate Rhythm: regular rhythm GI: Inspection: non-distended GI Palp: Yes Soft to palpation Skin: General skin exam: normal color Neuro: General: gait normal Speech: normal speech Extrem: General: normal to inspection Psych: Mental Status: mental status grossly normal Assessment and Plan Assessment and plan (1) Adenomatous colon polyp: Code(s): D12.6 - Benign neoplasm of colon, unspecified Status: Acute Assessment and Plan: colonoscopy
[2025-03-19 10:23] VITALS: BP 111/89; PULSE 84; RESP 20; O2SAT 89
[2025-03-19 10:33] VITALS: BP 118/80; PULSE 74; RESP 18; O2SAT 93
[2025-03-19 10:43] VITALS: BP 118/81; PULSE 77; RESP 19; O2SAT 96
== END 2025-03-19 10:56 | disposition home or self-care (01) ==
PROVIDERS: PCP Nurse Practitioner Family; Referring Provider Internal Medicine Gastroenterology; Visit Provider Internal Medicine Gastroenterology
PROC: 0DJD8ZZ Inspection of Lower Intestinal Tract, Via Natural or Artificial Opening Endoscopic (ICD-10-PCS; CPT 45378; principal; 2025-03-19 10:00)
DX: Z12.11 Encounter for screening for malignant neoplasm of colon (principal); Z86.0100 Personal history of colon polyps, unspecified; F17.210 Nicotine dependence, cigarettes, uncomplicated; F12.90 Cannabis use, unspecified, uncomplicated; E66.9 Obesity, unspecified; Z68.30 Body mass index [BMI] 30.0-30.9, adult
CPT/HCPCS: 45378; J2704; J7120